=== PATIENT | male | born 1960 | race Caucasian/White ===

== ENCOUNTER 2017-11-08 06:04 | Day surgery (SDC) | payer OTHER ==
[~2017-11-08] VITALS: Ht 182.9 cm; Wt 77.0 kg
[~2017-11-08 06:04] MED LIST: OXYB5 PO
[2017-11-08 06:19] LABS: BASOPHILS ABSOLUTE AUTO 0.04 K/mm3 (0.00-0.23); BASOPHILS PERCENT AUTO 1 % (0-2); EOSINOPHILS ABSOLUTE AUTO 0.19 K/mm3 (0.00-0.68); EOSINOPHILS PERCENT AUTO 3 % (0-6); Hematocrit 46.6 % (37.0-53.0); Hemoglobin 16.2 g/dL (13.5-17.5); IMMATURE GRAN ABSOLUTE AUTO 0.01 K/mm3 (0.00-0.10); IMMATURE GRAN PERCENT AUTO 0 % (0-1); LYMPHOCYTES PERCENT AUTO 32 % (21-46); MONOCYTES PERCENT AUTO 11 % (4-13); Mean Corpuscular HGB 30.6 pg (26.0-34.0); Mean Corpuscular HGB Conc 34.8 g/dL (31.5-36.5); Mean Corpuscular Volume 88 fL (80-100); Mean Platelet Volume 11.1 fL (9.1-12.4); NEUTROPHILS ABSOLUTE AUTO 3.29 K/mm3 (1.96-9.15); NEUTROPHILS PERCENT AUTO 53 % (41-73); Platelet Count 135 K/mm3 (150-400); RDW Coefficient Variation 12.2 % (11.7-14.2); RDW Standard Deviation 39.8 fL (35.1-46.3); Red Blood Cell Count 5.29 M/mm3 (4.30-5.90); White Blood Cell Count 6.23 K/mm3 (4.00-11.30)
[2017-11-08 06:30] LABS: International Normalized Ratio 1.11; Prothrombin Time Results 11.6 Sec (9.7-11.5)
[2017-11-08 06:35] LABS: Anion Gap 7 mmol/L (6-16); Blood Urea Nitrogen 15 mg/dL (8-24); Bun/Creatinine Ratio 17.6 (12.0-20.0); CO2, Blood 26 mmol/L (21-32); Calcium, Blood 8.8 mg/dL (8.5-10.1); Chloride, Blood 106 mmol/L (98-108); Creatinine, Blood 0.85 mg/dL (0.60-1.20); Glomerular Filtration Rate >60 (60-); Glucose, Blood 91 mg/dL (70-99); Potassium, Blood 3.9 mmol/L (3.5-5.5); Sodium, Blood 139 mmol/L (136-145)
== END 2017-11-08 15:40 | disposition home or self-care (01) ==
LOC: MHTC 06:04
PROVIDERS: Internal Medicine Cardiovascular Disease
PROC: B2111ZZ Fluoroscopy of Multiple Coronary Arteries using Low Osmolar Contrast (ICD-10-PCS; principal; 2017-11-08)
PROC: 4A023N7 Measurement of Cardiac Sampling and Pressure, Left Heart, Percutaneous Approach (ICD-10-PCS; principal; 2017-11-08)
DX: I07.1 Rheumatic tricuspid insufficiency (principal); G47.33 Obstructive sleep apnea (adult) (pediatric); G82.20 Paraplegia, unspecified; Z79.899 Other long term (current) drug therapy
CPT/HCPCS: 36415; 80048; 85025; 85610; 93458; 99152; 99153; C1769; C1894; J0690; J1644; J2250; J3010; J7030; Q9967

== ENCOUNTER 2021-08-10 06:26 | Inpatient (IN) | payer OTHER ==
[~2021-08-10] VITALS: Ht 182.9 cm; Wt 79.5 kg
[2021-08-10 07:17] LABS: BASOPHILS ABSOLUTE AUTO 0.04 K/mm3 (0.00-0.23); BASOPHILS PERCENT AUTO 0 % (0-2); EOSINOPHILS PERCENT AUTO 0 % (0-6); Hematocrit 53.5 % (37.0-53.0); IMMATURE GRAN ABSOLUTE AUTO 0.08 K/mm3 (0.00-0.10); IMMATURE GRAN PERCENT AUTO 1 % (0-1); LYMPHOCYTES ABSOLUTE AUTO 0.66 K/mm3 (0.84-5.20); LYMPHOCYTES PERCENT AUTO 4 % (21-46); MONOCYTES ABSOLUTE AUTO 0.77 K/mm3 (0.16-1.47); MONOCYTES PERCENT AUTO 5 % (4-13); Mean Corpuscular HGB 31.2 pg (26.0-34.0); Mean Corpuscular HGB Conc 35.5 g/dL (31.5-36.5); Mean Corpuscular Volume 88 fL (80-100); Mean Platelet Volume 11.3 fL (9.1-12.4); NEUTROPHILS ABSOLUTE AUTO 14.07 K/mm3 (1.96-9.15); NEUTROPHILS PERCENT AUTO 90 % (41-73); Platelet Count 184 K/mm3 (150-400); RDW Coefficient Variation 12.6 % (11.7-14.2); RDW Standard Deviation 40.7 fL (35.1-46.3); Red Blood Cell Count 6.09 M/mm3 (4.30-5.90); White Blood Cell Count 15.62 K/mm3 (4.00-11.30)
[2021-08-10 07:33] LABS: Alanine Aminotransfer (ALT/SGP 19 U/L (12-78); Albumin, Blood 3.5 g/dL (3.4-5.0); Albumin/Globulin Ratio 0.8 (0.8-1.8); Alk Phos 65 U/L (50-136); Anion Gap 8 mmol/L (6-16); Aspartate Aminotrans (AST/SGOT 12 U/L (12-37); Bilirubin, Total 4.7 mg/dL (0.1-1.0); Blood Urea Nitrogen 11 mg/dL (8-24); Bun/Creatinine Ratio 11.3 (12.0-20.0); CO2, Blood 22 mmol/L (21-32); Calcium, Blood 9.5 mg/dL (8.5-10.1); Chloride, Blood 104 mmol/L (98-108); Creatinine, Blood 0.98 mg/dL (0.60-1.20); Globulin, Blood 4.4 g/dL (2.2-4.0); Glomerular Filtration Rate >60 (60-); Glucose, Blood 116 mg/dL (70-99); Potassium, Blood 3.9 mmol/L (3.5-5.5); Sodium, Blood 134 mmol/L (136-145); Total Protein, Blood 7.9 g/dL (6.4-8.2)
[2021-08-10 10:02] LABS: SARS-Cov-2 (COVID-19) PCR, MMC NEGATIVE (NEGATIVE)
--- NOTE | 2021-08-10 18:03 | NUR ---
SHIFT SUMMARY PT IS CURRENTLY IN OR FOR LAP APPY WITH DR. LOPEZ. PRE-OP PAIN HAS BEEN MANAGED WITH MORPHINE. PT'S FIANCE HAS BEEN AT THE BEDSIDE FOR SUPPORT T/O THE DAY. PT IS ABLE TO DO SOME REPOSITIONING AND HAS DENIED ASSISTANCE REPOSITIONING. WILL REPORT TO CHRISTIANO ANN.
--- NOTE | 2021-08-10 19:30 | NUR ---
PT ARRIVEDTO FLOOR FROM PACU. PT A/O, VSS, SATS >9% ON RA. INCISIONS W/SMALL AMT SS DRNG. CONDOM CATH IN PLACE. IVF RESTARTED PER ORDERS. CALL LIGHT REACH,
--- NOTE | 2021-08-11 06:30 | NUR ---
POD 1 S/P LAP APPY. PT VSS T/O NIGHT. UMBILICUS SITE DRNG SMALL AMT SS DRNG, SITE REINFORCED W/BANGAGE AND GAUZE, OTHER 2 SITES WNL. PT MONIQUE REG PO, DENIED N/V, HAD 1 BM THIS SHIFT. PT SELF CATH WHEN AWAKE AND USED CONDOM CATH WHEN SLEEPING PER BASELINE ROUTINE. URINE MAAME. IVF CONT. PT ASSISTING W/REPOSITIONING, REQ FULL REPOSITIONING Q4 AND PRN T/O NIGHT.
--- NOTE | 2021-08-11 13:45 | NUR ---
pt reporting increase in nausea with hiccups and reflux. small emesis of less than 25 for this rn followed by 675 reported by vessel crew member. pt given zofran previously with no effect. message placed to dr. watkins.
--- NOTE | 2021-08-11 17:13 | NUR ---
SHIFT SUMMARY POD1 LAP APPY. 3 LAP SITES WITH SCANT AMOUNT OF DRAINAGE. PT HAD EPISODES OF VOMITING TODAY, DR NOTIFIED. PAIN MEDICATIONS AND NAUSEA MEDICATIONS GIVEN. VITAL SIGNS STABLE. PT SELF STRAIGHT CATH'D TODAY. BOWEL MOVEMENT TODAY, IS UNSURE IF HE IS PASSING GAS DUE TO NERVE DAMAGE. WILL REPORT TO ONCOMING RN.
[2021-08-12 04:45] LABS: BASOPHILS ABSOLUTE AUTO 0.03 K/mm3 (0.00-0.23); BASOPHILS PERCENT AUTO 0 % (0-2); EOSINOPHILS ABSOLUTE AUTO 0.01 K/mm3 (0.00-0.68); EOSINOPHILS PERCENT AUTO 0 % (0-6); Hematocrit 45.5 % (37.0-53.0); Hemoglobin 15.7 g/dL (13.5-17.5); IMMATURE GRAN ABSOLUTE AUTO 0.08 K/mm3 (0.00-0.10); IMMATURE GRAN PERCENT AUTO 1 % (0-1); LYMPHOCYTES ABSOLUTE AUTO 0.88 K/mm3 (0.84-5.20); LYMPHOCYTES PERCENT AUTO 6 % (21-46); MONOCYTES ABSOLUTE AUTO 0.83 K/mm3 (0.16-1.47); MONOCYTES PERCENT AUTO 6 % (4-13); Mean Corpuscular HGB 30.8 pg (26.0-34.0); Mean Corpuscular HGB Conc 34.5 g/dL (31.5-36.5); Mean Corpuscular Volume 89 fL (80-100); Mean Platelet Volume 11.6 fL (9.1-12.4); NEUTROPHILS ABSOLUTE AUTO 13.06 K/mm3 (1.96-9.15); NEUTROPHILS PERCENT AUTO 88 % (41-73); Platelet Count 172 K/mm3 (150-400); RDW Standard Deviation 42.2 fL (35.1-46.3); Red Blood Cell Count 5.09 M/mm3 (4.30-5.90); White Blood Cell Count 14.89 K/mm3 (4.00-11.30)
[2021-08-12 05:05] LABS: Anion Gap 4 mmol/L (6-16); Blood Urea Nitrogen 27 mg/dL (8-24); Bun/Creatinine Ratio 22.5 (12.0-20.0); CO2, Blood 29 mmol/L (21-32); Chloride, Blood 103 mmol/L (98-108); Glomerular Filtration Rate >60 (60-); Glucose, Blood 106 mg/dL (70-99); Potassium, Blood 4.2 mmol/L (3.5-5.5); Sodium, Blood 136 mmol/L (136-145)
--- NOTE | 2021-08-12 05:43 | NUR ---
Pt is in bed and is resting in stable condition. Assisted with care and ADLs, assisted with bathroom and toileting needs. Pt is paraplegic and rely on staff for repositioning and was assisted with that task. He catheterizes himself for urination, alert and is oriented, medicated as indicated. Call willard placed near him and encouraged to call for help when assistance is needed as he is monitored.
--- NOTE | 2021-08-12 07:42 | NUR ---
REPORT RECIEVED FROM MARISSA BALL. ASSUMED CARE OF PATIENT. PATIENT CURRENTLY LYING IN BED WITH NO SIGNS OR SYMPTOMS ACUTE DISTRESS NOTED. CALL LIGHT AND WATER IN EASY REACH. ABLE TO MAKE NEEDS AND WANTS KNOWN. WILL MONITOR.
--- NOTE | 2021-08-12 18:17 | NUR ---
PATIENT HAD MULTIPLE EMESIS TODAY X 3 WITH ABOUT 1200ML IN TOTAL BROWN/GREEN COLOR. NOTIFIED DR LOPEZ ANTIEMETICS WERE NOT HELPING. PATIENT PLACED NPO AND WAS TOLD BY DR LOPEZ IF HE VOMITS AGAIN WE WILL PLACE NGT TO LIS. AT 1630 PATIENT WAS COMPLAINING OF NAUSEA AGAIN, HE OPTED TO GET THE NGT AT THAT TIME. NGT PLACED TO LIS WITH GREEN/BROWN DRAINAGE IN CANNISTER. HE HAS HAD 500ML OUT AND DID VOMIT WHILE NGT WAS PLACED. SECURED TO NOSE. PATIENT TOLERATED FAIR. HE SAYS HE FEELS A LITTLE BETTER NOW BUT THE TUBE IN UNCOMFORTABLE IN HIS THROAT. HE WAS GIVEN ICE CHIPS TO KEEP HIS MOUTH MOIST. NO SIGNS OR SYMPTOMS ACUTE DISTRESS NOTED. CALL LIGHT AND ICE IN EASY REACH. ABLE TO MAKE NEEDS AND WANTS KNOWN. WILL CONTINUE TO MONITOR
[2021-08-12 22:56] LABS: Source, Urine Catheter
[2021-08-12 22:58] LABS: Appearance, Urine Clear (Clear); Bilirubin, Urine Neg (Neg); Blood, Urine 1+ (Neg); Color, Urine Amber (P-Yellow); Glucose Qualitative, Urine Neg (Neg); Ketones, Urine 2+ (Neg); Leukocyte Esterase, Urine Neg (Neg); Nitrite, Urine Neg (Neg); Protein, Urine 2+ (Neg); Urobilinogen, Urine NORM (Normal); pH, Urine 6.5 (5.0-8.0)
[2021-08-12 23:07] LABS: Red Blood Cells, Urine 0-2 /hpf (0-2); Squamous Epithelial Cells Few /hpf (Few)
[2021-08-12 23:08] LABS: Bacteria Few /hpf; Spermatozoa Few /hpf
[2021-08-13 04:08] LABS: BASOPHILS ABSOLUTE AUTO 0.04 K/mm3 (0.00-0.23); BASOPHILS PERCENT AUTO 0 % (0-2); EOSINOPHILS ABSOLUTE AUTO 0.02 K/mm3 (0.00-0.68); EOSINOPHILS PERCENT AUTO 0 % (0-6); Hematocrit 46.2 % (37.0-53.0); Hemoglobin 15.7 g/dL (13.5-17.5); IMMATURE GRAN ABSOLUTE AUTO 0.08 K/mm3 (0.00-0.10); IMMATURE GRAN PERCENT AUTO 1 % (0-1); LYMPHOCYTES ABSOLUTE AUTO 0.96 K/mm3 (0.84-5.20); LYMPHOCYTES PERCENT AUTO 6 % (21-46); MONOCYTES ABSOLUTE AUTO 0.95 K/mm3 (0.16-1.47); MONOCYTES PERCENT AUTO 6 % (4-13); Mean Corpuscular HGB 30.7 pg (26.0-34.0); Mean Corpuscular Volume 90 fL (80-100); Mean Platelet Volume 11.1 fL (9.1-12.4); NEUTROPHILS ABSOLUTE AUTO 13.09 K/mm3 (1.96-9.15); NEUTROPHILS PERCENT AUTO 87 % (41-73); Platelet Count 187 K/mm3 (150-400); RDW Coefficient Variation 12.8 % (11.7-14.2); RDW Standard Deviation 42.3 fL (35.1-46.3); Red Blood Cell Count 5.11 M/mm3 (4.30-5.90); White Blood Cell Count 15.14 K/mm3 (4.00-11.30)
[2021-08-13 04:26] LABS: Anion Gap 7 mmol/L (6-16); Blood Urea Nitrogen 21 mg/dL (8-24); Bun/Creatinine Ratio 20.2 (12.0-20.0); CO2, Blood 29 mmol/L (21-32); Calcium, Blood 9.4 mg/dL (8.5-10.1); Chloride, Blood 102 mmol/L (98-108); Creatinine, Blood 1.04 mg/dL (0.60-1.20); Glomerular Filtration Rate >60 (60-); Glucose, Blood 98 mg/dL (70-99); Magnesium, Blood 2.4 mg/dL (1.6-2.4); Phosphorus, Blood 3.6 mg/dL (2.5-4.9); Potassium, Blood 3.8 mmol/L (3.5-5.5); Sodium, Blood 138 mmol/L (136-145)
--- NOTE | 2021-08-13 05:19 | NUR ---
PT IN BED AT THIS TIME AND IS RESTING IN STABLE CONDITION. DENIES ANY PAIN, NGT IN PLACE AND IS PATENT. ABDOMEN REMAINS DISTENDED, BUT PT DENIES NAUSEA OR ABD PAIN. HE IS ASSISTED WITH REPOSITIONING FOR COMFORT. CALL BRUCE PLACED NEAR HIM AND ENCOURAGED TO CALL FOR HELP WHEN ASSISTANCE IS NEEDED HE IS MONITORED.
--- NOTE | 2021-08-13 18:09 | NUR ---
PATIENT CURRENTLY LYING IN BED WITH NO SIGNS OR SYMPTOMS ACUTE DISTRESS NOTED. CALL LIGHT AND ICE CHIPS IN EASY REACH. ABLE TO MAKE NEEDS AND WANTS KNOWN. NGT TO LIS. CLEAR BROWN FLUID IN TUBING OF NGT, WITH GREEN/BROWN FLUID IN THE CANNISTER. PATIENT REMAINS ON ROOM AIR. IVF CONTINUES. PATIENT HAS HAD INCONTINENT STOOLS TODAY. PATIENT WORKED WITH PT TODAY WELL AND DID WELL, HE WAS UP TO HIS WHEELCHAIR. PATIENT IS AAO X 4. IS AT BEDSIDE AT THIS TIME VISITING. WILL MONITOR.
--- NOTE | 2021-08-14 07:09 | NUR ---
Pt is in bed at this time and is resting quietly in stable condition. Alert amd oriented, denies pain and nausea. Assisted with care and ADL, medicated, assisted with repositioning for comfort. Pt encouraged to call for help when assistance is needed as he is monitored. Call light provided to him.
[2021-08-15 04:30] LABS: Hematocrit 43.7 % (37.0-53.0); Hemoglobin 14.6 g/dL (13.5-17.5); Mean Corpuscular HGB 30.7 pg (26.0-34.0); Mean Corpuscular HGB Conc 33.4 g/dL (31.5-36.5); Mean Corpuscular Volume 92 fL (80-100); Mean Platelet Volume 10.2 fL (9.1-12.4); Platelet Count 197 K/mm3 (150-400); RDW Coefficient Variation 12.5 % (11.7-14.2); RDW Standard Deviation 42.9 fL (35.1-46.3); Red Blood Cell Count 4.75 M/mm3 (4.30-5.90); White Blood Cell Count 13.17 K/mm3 (4.00-11.30)
[2021-08-15 04:51] LABS: Alanine Aminotransfer (ALT/SGP 18 U/L (12-78); Albumin, Blood 2.2 g/dL (3.4-5.0); Albumin/Globulin Ratio 0.6 (0.8-1.8); Alk Phos 66 U/L (50-136); Anion Gap 6 mmol/L (6-16); Aspartate Aminotrans (AST/SGOT 17 U/L (12-37); Bilirubin, Total 1.4 mg/dL (0.1-1.0); Blood Urea Nitrogen 17 mg/dL (8-24); Bun/Creatinine Ratio 20.5 (12.0-20.0); CO2, Blood 27 mmol/L (21-32); Calcium, Blood 8.4 mg/dL (8.5-10.1); Chloride, Blood 107 mmol/L (98-108); Creatinine, Blood 0.83 mg/dL (0.60-1.20); Globulin, Blood 3.9 g/dL (2.2-4.0); Glomerular Filtration Rate >60 (60-); Glucose, Blood 75 mg/dL (70-99); Potassium, Blood 3.9 mmol/L (3.5-5.5); Sodium, Blood 140 mmol/L (136-145); Total Protein, Blood 6.1 g/dL (6.4-8.2)
[2021-08-15 06:22] LABS: BASOPHILS PERCENT MAN 0 % (0-2); EOSINOPHILS ABSOLUTE MAN 0.92 K/mm3 (0.00-0.68); EOSINOPHILS PERCENT MAN 7 % (0-6); LYMPHOCYTES % ATYPICAL MANUAL 1 % (0-0); LYMPHOCYTES ABSOLUTE MAN 1.71 K/mm3 (0.84-5.20); LYMPHOCYTES PERCENT MAN 12 % (21-46); MONOCYTES ABSOLUTE MAN 1.05 K/mm3 (0.16-1.47); MONOCYTES PERCENT MAN 8 % (4-13); NEUTROPHILS ABSOLUTE MAN 9.48 K/mm3 (1.96-9.15); SEG NEUTROPHILS PERCENT MAN 72 % (41-73); TOTAL CELLS COUNTED 100
--- NOTE | 2021-08-15 07:30 | NUR ---
SUMMARY PTS NG REMAINED CLAMPED THIS SHIFT WITHOUT NAUSEA. PT UNABLE TO SAY IF PASSING FLATUS.UNABLE TO FULLY ASSESS PTS SKIN AT BACK SIDE DUE TO PT REPOSITIONING AND NOT FULLY TURNING.PT VERB UNDERSTANDING WE ARE UNABLE TO FULLY ASSESS SKIN.
--- NOTE | 2021-08-16 06:43 | NUR ---
PT REMAINS IN BED THROUGHOUT THE NIGHT AND IS RESTING COMFORTABLY IN STABLE CONDITION. DENIES ANY PAIN AND DISCOMFORT. ASSISTED WITH HIS CARE AND ADLS, MEDICATED ORDERED. ASSISTED WITH BATHROOM AND TOILETING NEEDS, ASSISTED WITH REPOSITIONING TO ENHACE COMFORT. CALL BRUCE GIVEN TO HIM AND ENCOURAGED TO CALL FOR HELP WHEN ASSISTANCE IS NEEDED HE IS MONITORED.
--- NOTE | 2021-08-17 06:17 | NUR ---
PT REMAINS IN BED THROUGH THE NIGHT AND IS RESTING COMFORTABLY IN STABLE CONDITION. DENIES PAIN / DISCOMFORT. HE IS ASSISTED WITH HIS CARE, MEDICATED ORDERED. HIS CALL LIGHT WAS GIVEN TO HIM AND WAS REMINDED TO CALL FOR HELP WHEN ASSISTANCE IS NEEDED HE MONITORED.
[2021-08-17] MEDS ORDERED: OXYACE7.5T PO (14:16)
[2021-08-17] MEDS ORDERED: AMOCLA875 PO (14:17)
--- NOTE | 2021-08-17 17:07 | NUR ---
DISCHARGE PATIENT DISCHARGED IN STABLE CONDITION HOME. PERIPHERAL IV REMOVED, DISCHARGE INSTRUCTIONS GIVEN TO PATIENT AND FAMILY WITH PRINTED PRESCRIPTIONS. PATIENT VERBALIZED UNDERSTANDING OF INSTRUCTIONS. ALL BELONGINGS PACKED AND SENT WITH PATIENT.
== END 2021-08-17 16:39 | disposition home or self-care (01) | DRG 339 ==
LOC: ER 06:26 → SURS 06:27
PROVIDERS: Emergency Medicine; Surgery; ADMIT Surgery
PROC: 0DTJ4ZZ Resection of Appendix, Percutaneous Endoscopic Approach (ICD-10-PCS; principal; 2021-08-11)
DX: K35.33 Acute appendicitis with perforation, localized peritonitis, and gangrene, with abscess (principal); K56.0 Paralytic ileus; Z20.822 Contact with and (suspected) exposure to COVID-19; Z79.899 Other long term (current) drug therapy
CPT/HCPCS: 36415; 74177; 80048; 80053; 81001; 83690; 83735; 84100; 85025; 88304; 93005; 93010; 94760; 96365; 96366; 96367; 96375; 96376; 97110; 97162; 97530; 99285-25; A9270; G0378; J0295; J0690; J1100; J1885; J2250; J2270; J2370; J2405; J2543; J2704; J2765; J3010; J7030; J7120; Q9967; U0004

== ENCOUNTER 2024-06-23 08:42 | Day surgery (SDC) | payer OTHER ==
[~2024-06-23] VITALS: Ht 185.4 cm; Wt 80.0 kg
[2024-06-23] VITALS (13 sets, daily range): BP systolic 121–143; BP diastolic 60–121
[~2024-06-23 08:42] MED LIST changes: +AMOCLA875 PO; +CeFAZolin Sodium 2,000 MG in NS 100 ML IV SCH; +Lactated Ringer's 1,000 ML IV SCH; +OXYACE7.5T PO
[2024-06-23] MEDS ORDERED: Midazolam HCl 1MG / ML 2ML Vial ONE (08:57)
[2024-06-23] MEDS ORDERED: FentaNYL Citrate 50 MCG/ML 2 ML Injection ONE ×2 (08:57→11:55)
[2024-06-23] MEDS ORDERED: propofoL 20 ML IV ONE (08:57)
[2024-06-23] MEDS ORDERED: Rocuronium Bromide 10 MG/ML 5ML Injection IV ONE ×2 (08:58→10:28)
[2024-06-23] MEDS ORDERED: Dexamethasone Sod Phos 10 MG/ML 1ML VIAL ONE (08:58)
[2024-06-23] MEDS ORDERED: Ondansetron HCl 2 MG / ML 2ML Vial ONE (08:58)
[2024-06-23] MEDS ORDERED: Ketorolac Tromethamine 30mg Vial ONE (09:00)
[2024-06-23] MEDS ORDERED: Bupivacaine 0.5% HCl 5 MG/ML 30MLVIAL ONE (09:16)
--- NOTE | 2024-06-23 09:50 | NUR ---
PT INTO SDS VIA W/C R/T PARAPLEGIC. ABLE TO SELF TRANSFER FROM CHAIR TO BED. Patient confirms NPO status and agrees with scheduled surgery. History, Chart, Medications and Allergies reviewed before start of procedure.Pre-Op teaching done. Pt verbalizes understanding. Patient States Post-Procedure ride home has been arranged.
[2024-06-23] MEDS ORDERED: ePHEDrine Sulfate 50 MG/ML 1ML Injection ONE (10:07)
[2024-06-23] MEDS ORDERED: Sugammadex Sodium 200 MG/2ML SDV (100 MG/ML) ONE (11:10)
[2024-06-23] MEDS ORDERED: HYDROcodone 5-APAP 325 TAB PO PRN (12:45)
--- NOTE | 2024-06-23 13:40 | NUR ---
DISCHARGE: PT'S BASELINE IS W/C BOUND. PT ASSISTED TO W/C PER PT'S REQ. REPORTS HAVING MULT ASSISTANCE AT HOME WELL EQUIP. PT TOLERATING PO. REPORTS READY TO GO HOME. Discharge instructions reviewed with patient. Patient verbalizes understanding. Copy given to patient to take home. SCRIPT ALSO SENT WITH PT. Patient States Post-Procedure ride home has been arranged. Discharged via PT'S OWN wheelchair to private car for ride home WITH PT'S OTHER BELONGINGS.
== END 2024-06-23 13:40 | disposition home or self-care (01) ==
LOC: ORSCMMR 08:42 → ORD 10:30 → ORSCMMR 13:40
DX: K40.90 Unilateral inguinal hernia, without obstruction or gangrene, not specified as recurrent (principal); K43.9 Ventral hernia without obstruction or gangrene; G47.33 Obstructive sleep apnea (adult) (pediatric); F17.210 Nicotine dependence, cigarettes, uncomplicated; Z79.899 Other long term (current) drug therapy
CPT/HCPCS: A9270; C1781; J0690; J1100; J1885; J2250; J2405; J2704; J3010; J7120